=== PATIENT | male | born 1965 | race African-American/Black ===

== ENCOUNTER 2019-07-20 14:58 | Emergency (ER) | payer OTHER, SELFPAY ==
[2019-07-20] MEDS ORDERED: HYDROcodone/Acetaminophen 10/325 mg Tablet ONE (19:11)
== END 2019-07-20 19:18 | disposition home or self-care (01) ==
LOC: ERS 14:58
DX: S16.1XXA Strain of muscle, fascia and tendon at neck level, initial encounter (principal); I10 Essential (primary) hypertension; E11.9 Type 2 diabetes mellitus without complications; F17.210 Nicotine dependence, cigarettes, uncomplicated; Z79.4 Long term (current) use of insulin; Z79.899 Other long term (current) drug therapy; X50.0XXA Overexertion from strenuous movement or load, initial encounter
CPT/HCPCS: 99283

== ENCOUNTER 2019-08-28 19:20 | Inpatient (IN) | payer OTHER ==
[~2019-08-28 19:20] MED LIST: Iopamidol-370 76% 500 ML 1 ML ONE
[2019-08-28] MEDS ORDERED: Dextrose 50% Abboject 50 ML SYRINGE ONE (19:41)
[2019-08-28] MEDS ORDERED: Calcium Chloride 1 GM/10 ML Abboject SYRINGE ONE (19:41)
[2019-08-28] MEDS ORDERED: Albuterol Sulfate 2.5 mg/3 ml Neb ONE (19:45)
[2019-08-28] MEDS ORDERED: Insulin Regular 300 UNITS/3 ML VIAL ONE (19:46)
--- NOTE | 2019-08-28 20:07 | RAD ---
PORTABLE CHEST: 08/28/19 PROVIDED CLINICAL HISTORY: Syncope. FINDINGS: Heart size appears normal. There is a mass-like appearance to the right hilum with adjacent atelectas is or parenchymal mass. The left lung appears grossly clear. There is no pleural fluid or pneumothora x apparent. IMPRESSION: Right hilar mass with associated post obstructive atelectasis or parenchymal mass. Correlation with c hest CT recommended. POS: RYNE
[2019-08-28 20:17] LABS: Band 14 % (5-11); Hemoglobin 13.3 g/dL (14.0-18.0); Lymphocytes 5 % (21-51); MDiff Complete? YES; Mean Corpuscular HGB CONC 31.7 g/dL (32.0-36.0); Mean Corpuscular Hemoglobin 32.4 pg (27.0-31.0); Mean Platelet Volume 10.6 fL (7.4-10.4); Metamyelocyte 1 % (0-0); Monocytes 4 % (0-10); Myelocyte 1 % (0-0); Neutrophil 75 % (42-75); Platelet Count 186 thou/uL (130-400); Platelet Morphology Comment Appears Adequate; RBC Distribution Width 19.3 % (11.5-14.5); White Blood Cell (WBC) Count 38.3 thou/uL (4.8-10.8)
[2019-08-28 20:23] LABS: ALT (SGPT) 647 U/L (8-55); AST (SGOT) 1010 U/L (5-34); Albumin 3.1 g/dL (3.5-5.0); Alkaline Phosphatase 1676 U/L (40-110); Anion Gap 30 mmol/L (10-20); BUN (Urea Nitrogen) 82 mg/dL (8.4-25.7); Bilirubin, Total 24.2 mg/dL (0.2-1.2); Calc. Creatinine Clearance 0 mL/min (70-130); Calcium 9.2 mg/dL (7.8-10.44); Carbon Dioxide 11 mmol/L (22-29); Chloride 98 mmol/L (98-107); Estimated GFR-MDRD 44; Globulin 3.2 g/dL (2.4-3.5); Glucose 118 mg/dL (70-105); Lipase 22 U/L (8-78); Magnesium 3.2 mg/dL (1.6-2.6); Protein, Total 6.3 g/dL (6.0-8.3)
[2019-08-28 20:24] LABS: Base Excess-Venous -11.8 mmol/L (-2.0 to 3.0); Bicarbonate (HCO3v) 12.7 mmol/L (22.0-28.0); CO2 Tension (PvCO2) 25.9 mmHg (40.0-50.0); Calcium, Ionized 0.94 mmol/L (See Comments:); Chloride 106 mmol/L (98-107); Hemoglobin - Calc 16.3 g/dL (14.0-18.0); Potassium 8.7 mmol/L (3.5-5.1); Sodium 131 mmol/L (138-145); T. Carbon Dioxide 13.5 mmol/L (22.0-28.0); vO2 Saturation-calc 97.6 % (60.0-85.0)
[2019-08-28 20:44] LABS: Potassium 8.7 mmol/L (3.5-5.1)
[2019-08-28 20:47] LABS: Sodium 130 mmol/L (136-145)
--- NOTE | 2019-08-28 21:39 | CT ---
CTA Angio Chest W WO Con 08/28/2019 8:54 PM Indication: Cough; weakness and near syncopal episode Technique: Multiple CTA images were obtained of the thorax with IV contrast. 3-D rendering: MIP billy nstructed images were created and reviewed. Comparison: No relevant prior studies available. Findings: Pulmonary arteries: There is a near complete occlusion of the right superior lobar pulmonary artery by the large right suprahilar mass. The mass and lymphadenopathy the right hilar region and envelops right interlobar artery and origins of the right middle and right lower lobar pulmonary neetu caryl. No definite central or segmental pulmonary embolus is demonstrated. Heart and Aorta: Normal appearing. Mediastinum:There is extensive adenopathy of the mediastinum and right hilar region. There is a large right suprahilar mass measuring 8.7 x 9.6 cm. There is extensive adenopathy the right hilar region. Subcarinal lymph node measures 2.6 cm. There is a right paratracheal lymph node measuring 2 c m. There is extensive adenopathy of the anterior and superior mediastinum. There is adenopathy in the prevascular region, AP window. Lungs:There are scattered emphysema. There are scattered pulmonary nodules consistent with metastatic disease. There is hazy groundglass opacity within the superior segment of the left lower lobe. Pleural space: Clear. Upper Abdomen: There are hypodense masses involving the liver consistent with metastatic disease. Osseous Structures: There is an expansile lytic lesion involving the posterior left fifth rib with s oft tissue extension into the left posterior extrapleural space on image 40 series 2. Lesion measures 4.7 cm in size. Soft tissues:No abnormality. Other findings:None. Impression: 1. Large right suprahilar mass with extensive lymphadenopathy in the right hilar region and mediastin um. There is pulmonary, hepatic and osseous metastatic disease present. 2. Hazy groundglass opacity in the superior segment left lower lobe may reflect focal region of pulmo nary hemorrhage versus pneumonitis. 3. No definite central or segmental pulmonary embolus. There is prominent mass effect from the large right suprahilar mass involving the right superior lobar pulmonary artery.
--- NOTE | 2019-08-28 21:45 | CT ---
CT OF THE ABDOMEN AND PELVIS WITH IV CONTRAST INDICATION: History of liver cancer, weakness and near syncopal episode COMPARISON: CT PE examination dated August 28, 2019 FINDINGS: ABDOMEN: Lung bases: There is extensive scattered pulmonary nodules within both lungs Liver: There are numerous hypodense masses involving the liver most suspicious for metastatic disease . Large confluence of heterogeneous masses are seen filling the right hepatic lobe. One of the largest lesion is seen within the medial left measuring 4.9 cm. Gallbladder: Contracted Pancreas: Normal. Adrenal glands: Normal. Spleen: Normal. Kidneys and ureters: Normal. No hydronephrosis. Vasculature: There are mild vascular calcifications seen involving the visualized vasculature. Lymph nodes:There is extensive lymphadenopathy the portacaval region and peripancreatic region. One o f the lymph nodes is seen adjacent to the anterior pancreatic head on image 37 series 5 measuring 3.4 cm. There are mildly enlarged lymph nodes seen adjacent to the aorta on image 42 of series 5. One of the largest measures 1 cm. There are enlarged gastrohepatic lymph nodes. Free fluid in abdomen:No free fluid is evident. PELVIS: Small and large bowel: Normal Appendix:Normal Bladder: Normal. Rectal and perirectal soft tissues:Normal. Reproductive structures: Normal. Free fluid in pelvis: No free fluid is evident. Lymphadenopathy pelvis: No lymphadenopathy is evident. Osseous structures: There is a lytic lesion involving the posterior aspect of L5 with a pathologic en dplate compression fracture. There is approximately 25% loss of height of the central and posterior aspect of L5 vertebral body. There is a left unilateral pars defect at L5. There is scattered degene rative and osteoarthritic changes. Soft tissues:Mild anasarca IMPRESSION: 1. Extensive hepatic metastatic disease. 2. Prominent malignant lymphadenopathy of the upper abdomen 3. Osteolytic metastatic lesion of L5 with pathologic endplate compression abnormalities involving th e central and posterior aspect of the L5 vertebra. 4. Pulmonary metastatic disease. Primary suspected malignancy involving the right suprahilar region, detailed separately on a CT PE examination of the chest dated August 28, 2019.
[2019-08-28] MEDS ORDERED: Cefepime 2 GM VIAL ONE (22:53)
[2019-08-28] MEDS ORDERED: Dextrose 5 %-0.45 % NaCl 1,000 ML IV SCH (23:15)
[2019-08-28] MEDS ORDERED: Insulin Regular 100 units/100 ml in NS IVPB SCH (23:15)
[2019-08-28 23:21] LABS: Anion Gap 27 mmol/L (10-20); BUN (Urea Nitrogen) 82 mg/dL (8.4-25.7); Calc. Creatinine Clearance 0 mL/min (70-130); Calcium 9.2 mg/dL (7.8-10.44); Carbon Dioxide 12 mmol/L (22-29); Chloride 100 mmol/L (98-107); Estimated GFR-MDRD 54; Glucose 156 mg/dL (70-105); Potassium 9.1 mmol/L (3.5-5.1); Sodium 130 mmol/L (136-145)
[2019-08-29 00:28] LABS: Chloride 106 mmol/L (98-107); Sodium 133 mmol/L (136-145)
[2019-08-29 00:29] LABS: BUN (Urea Nitrogen) 85 mg/dL (8.4-25.7); Calc. Creatinine Clearance 0 mL/min (70-130); Calcium 8.9 mg/dL (7.8-10.44); Estimated GFR-MDRD 46; Glucose 165 mg/dL (70-105)
[2019-08-29 00:31] LABS: Carbon Dioxide Less than 8 mmol/L (22-29); Potassium Greater than 9.5 mmol/L (3.5-5.1)
[2019-08-29] MEDS ORDERED: Albuterol Sulfate 2.5 mg/3 ml Neb ONE (00:49)
[2019-08-29 01:11] LABS: Bicarbonate (HCO3v) 12.9 mmol/L (22.0-28.0); CO2 Tension (PvCO2) 29.7 mmHg (40.0-50.0); Calcium, Ionized 1.02 mmol/L (See Comments:); Chloride 96 mmol/L (98-107); Hemoglobin - Calc 13.7 g/dL (14.0-18.0); Potassium 7.1 mmol/L (3.5-5.1); Sodium 123 mmol/L (138-145); T. Carbon Dioxide 13.8 mmol/L (22.0-28.0); vO2 Saturation-calc 86.2 % (60.0-85.0)
[2019-08-29] MEDS ORDERED: Furosemide 100 MG/10 ML VIAL ONE (01:28)
[2019-08-29 03:03] LABS: Troponin I 0.034 ng/mL (< 0.028)
[2019-08-29] MEDS ORDERED: Dextrose 5% in Water 1,000 ML IV PRN (03:13)
[2019-08-29] MEDS ORDERED: Sodium Bicarbonate 100 MEQ in Sodium Chloride 0.45% 1,000 ML IV SCH (03:15)
[2019-08-29] MEDS ORDERED: Sodium Bicarb 50 MEQ/50 ML VIAL ONE ×2 (03:15→03:16)
[2019-08-29] MEDS ORDERED: Dexamethasone 4 mg/ml Vial ONE (03:15)
[2019-08-29] MEDS ORDERED: Bisacodyl 10 MG SUPP PR PRN (03:15)
[2019-08-29] MEDS ORDERED: Senokot S 8.6-50 MG TAB PO PRN (03:15)
[2019-08-29] MEDS ORDERED: Vancomycin 1.5 GRAM/300 ML BAG 1.5 GM in Premix Bag 1 BAG IVPB SCH (03:45)
--- NOTE | 2019-08-29 03:48 | HP ---
PRIMARY CARE PHYSICIAN: [facility], Dr. Brandon Enriquez. CHIEF COMPLAINT: Syncopal episode, generalized weakness with near syncope. HISTORY OF PRESENT ILLNESS: The patient is a 53-year-old male with recent diagnosis of liver cancer with metastasis presented to the emergency room by EMS with above complaint. History obtained from the patient as well as the [facility] records. The patient was admitted to [facility] in [place] from 17 August 2019 until August 24, 2019. He initially presented with nausea, vomiting along with cough. His workup was consistent with lung mass with metastasis to the brain as well as the liver. He underwent CT-guided liver biopsy that was consistent with poorly differentiated carcinoma involving the liver and high grade with Ki67 of 95%. He was also started on dexamethasone for brain metastasis. His MRI of the brain showed 1.5 cm ring-enhancing mass in the right frontal lobe with surrounding vasogenic edema on 18 August. The patient was brought in by EMS with generalized weakness along with near syncopal episode. He was sitting at the table and felt weak, and stated that he was unable to get up. He also reported abdominal discomfort along with lack of appetite and burning in the urination. The abdominal pain is more or less constant without any aggravating or relieving factor. He denies any nausea, vomiting, or diarrhea. No chest pain, palpitations, or focal neurologic deficit reported. In the emergency room, his initial vital signs showed temperature 97.7, respirations of 20, pulse rate of 84 with a blood pressure of 122/60 with O2 saturation 98% on room air. His lab work was consistent with hyperkalemia with potassium of 8.7 along with peaked T-wave changes. His total bilirubin was 24.2 with bicarbonate of less than 8. He is getting a dialysis catheter for emergent dialysis. PAST MEDICAL HISTORY: 1. Poorly differentiated liver malignancy with metastasis. 2. Diabetes mellitus type 2. 3. Tobacco dependence. 4. Hypertension. 5. Hyperlipidemia. PAST SURGICAL HISTORY: Recent liver biopsy. ALLERGIES: THE PATIENT DENIES ANY DRUG ALLERGIES. CURRENT MEDICATIONS: The patient was discharged from [facility] last week with following medications: 1. Dexamethasone 4 mg every 12 hours. 2. Lactulose 20 g twice a day. 3. Zofran as needed. 4. Oxycodone as needed. 5. Sodium bicarbonate 650 mg 3 times a day. 6. Levemir insulin 35 units at night. 7. Cetirizine 10 mg daily. 8. Fluticasone 50 mcg nasal spray daily. 9. NovoLog sliding scale. 10. Patanol 1 drop in each eye twice daily. SOCIAL HISTORY: The patient currently lives at home. He is single. He is a former smoker. Denies any alcohol or drug use. FAMILY HISTORY: Diabetes runs in his family. REVIEW OF SYSTEMS: All other review of systems were reviewed and were found negative. PHYSICAL EXAMINATION: VITAL SIGNS: As discussed above. GENERAL: A 53-year-old male. Ill appearing. Somnolent. HEENT: Head, atraumatic, normocephalic. Sclerae icteric. Dry mucous membranes. No oral lesion. NECK: Supple. No JVD appreciated. No carotid bruit. LUNGS: Show diminished air entry at bilateral bases with scattered rhonchi. HEART: S1, S2 present. Regular rate and rhythm. No rubs or gallops. Abdomen: Obese, soft. Tender in the right lower quadrant with fluid thrill. EXTREMITIES: Two to 3+ edema in bilateral lower extremities. SKIN: Warm and dry. LYMPH NODES: No palpable lymph nodes in the neck. NEUROLOGY: The patient is generally weak without focal deficit. He has chronic facial droop. No other focal deficit. PSYCHIATRY: The patient is awake, alert. Follows commands appropriately. PERIPHERAL VASCULAR: Radial pulses palpable bilaterally. MUSCULOSKELETAL: No joint swelling or tenderness. LABORATORY FINDINGS: 1. CBC showed WBC 38.3 with hemoglobin 13.3, hematocrit 41.8, platelet 186. 2. VBG showed pH of 7.29 with bicarbonate 12.7, pCO2 of 25.9. 3. Chemistry showed sodium 130 with potassium 8.7, bicarbonate less than 8, creatinine 1.95 with BUN of 85. 4. Magnesium 3.2. 5. Alkaline phosphatase 1676, ALT of 647, AST of 1010, total bilirubin 24.2. 6. Troponin of 0.029 with CK-MB of 7.0. 7. Beta hydroxy 0.3. 8. Chest x-ray by my review showed lung mass. 9. CT scan of the abdomen with contrast showed extensive hepatic metastatic disease with lymphadenopathy and osteolytic metastatic lesion of L5 with pathologic endplate compression abnormalities involving the central and the posterior aspect of the L5 vertebra. 10. CT angiogram of the chest was negative for pulmonary embolism. It showed a large right suprahilar mass with extensive lymphadenopathy in the right hilar region and mediastinum. 11. MRI of the brain obtained recently at [facility] showed 1.5 cm ring-enhancing mass in the right frontal lobe with vasogenic edema. 12. Right upper quadrant ultrasound at [facility] on 17 August 2019 showed hepatomegaly with no biliary ductal dilatation. It showed multiple hepatic lesions. 13. EKG by my review showed peaked T-wave changes with sinus rhythm. 14. Bilirubin 5 days ago at [facility] was 20.2 with a potassium of 5.5 at discharge. His creatinine at discharge was 0.8. 15. EKG by my review showed sinus rhythm with peaked T-wave changes. IMPRESSION: 1. Generalized weakness/Toxic Metabolic Encephalopathy, multifactorial. 2. Severe hyperkalemia secondary to metabolic acidosis. 3. Acute kidney injury on chronic kidney disease stage 2. 4. Hyponatremia. 5. Poorly differentiated liver malignancy with metastasis. 6. Brain metastasis with vasogenic edema, on dexamethasone. 7. L5 compression abnormality. 8. Diabetes mellitus type 2. Recent A1c 5.8 9. Hypertension. 10. Hyperlipidemia. 11. Former smoker. 12. Lung mass, probably secondary to metastasis. 13. Recent hospitalization at & as discussed above. PLAN: The patient will be monitored in the intensive care unit. Emergent hemodialysis will be arranged. His WBC at discharge 5 days ago was 22.1. His elevated WBC is probably secondary to dexamethasone use. Nephrology has been consulted. We will start him on sodium bicarbonate drip. We will consult Oncology as well as Neurosurgery. Monitor labs on a daily basis. Insulin sliding scale with glucose check Q4h. Check Ammonia. Palliative care consult. The patient understands the above plan of care. Job ID: [id number] [facility]
[2019-08-29 04:19] LABS: ALT (SGPT) 627 U/L (8-55); AST (SGOT) 951 U/L (5-34); Albumin 2.7 g/dL (3.5-5.0); Alkaline Phosphatase 1486 U/L (40-110); Anion Gap 25 mmol/L (10-20); BUN (Urea Nitrogen) 83 mg/dL (8.4-25.7); Bilirubin, Total 21.3 mg/dL (0.2-1.2); CK (CPK) 616 U/L (30-200); Calc. Creatinine Clearance 59 mL/min (70-130); Calcium 8.5 mg/dL (7.8-10.44); Carbon Dioxide 15 mmol/L (22-29); Chloride 99 mmol/L (98-107); Estimated GFR-MDRD 44; Glucose 192 mg/dL (70-105); Lipase 32 U/L (8-78); Protein, Total 5.7 g/dL (6.0-8.3); Sodium 131 mmol/L (136-145)
[2019-08-29 04:20] LABS: Band 9 % (5-11); Eosinophils 1 % (0-10); Hemoglobin 12.2 g/dL (14.0-18.0); MDiff Complete? YES; Mean Corpuscular HGB CONC 32.8 g/dL (32.0-36.0); Mean Corpuscular Hemoglobin 32.4 pg (27.0-31.0); Mean Corpuscular Volume 98.9 fL (78.0-98.0); Mean Platelet Volume 10.4 fL (7.4-10.4); Metamyelocyte 1 % (0-0); Monocytes 2 % (0-10); Neutrophil 87 % (42-75); Platelet Count 160 thou/uL (130-400); Platelet Morphology Comment Appears Adequate; RBC Distribution Width 18.5 % (11.5-14.5); Red Blood Cell (RBC) Count 3.78 mill/uL (4.70-6.10); Target Cells MODERATE= 6-15 cells (100X) (0-1/hpf); White Blood Cell (WBC) Count 36.8 thou/uL (4.8-10.8)
[2019-08-29] MEDS ORDERED: Insulin Regular 300 UNITS/3 ML VIAL SC PRN (04:35)
[2019-08-29 04:41] LABS: HBSAg Index 0.24 S/CO (0-0.99); Hep B Surf Ag Non-Reactive S/CO (NonReactive)
[2019-08-29 04:44] LABS: CKMB 7.1 ng/mL (0-6.6)
--- NOTE | 2019-08-29 04:58 | CON ---
DATE OF CONSULTATION: 08/29/2019 CONSULTING PHYSICIAN: Dr. Mckenna. REASON FOR CONSULT: Severe hyperkalemia and acidosis. REASON FOR ADMISSION: Syncope. HISTORY OF PRESENT ILLNESS: This is a 53-year-old male with history of liver malignancy with metastasis, type 2 diabetes, tobacco dependence, hypertension, and hyperlipidemia, came to the hospital with syncope and was found to have severe hyperkalemia. Nephrology was consulted. The patient was seen during dialysis and tolerating well. No fever or chills. He has massive leg edema. He is on dexamethasone for brain mets. PAST MEDICAL HISTORY: Positive for liver malignancy, type 2 diabetes, tobacco dependence, hypertension, and hyperlipidemia. PAST SURGICAL HISTORY: Liver biopsy. HOME MEDICATIONS: 1. Dexamethasone. 2. Lactulose. 3. Zofran. 4. Oxycodone. 5. Sodium bicarbonate. 6. Levemir. 7. Cetrizine. 8. Fluticasone. 9. NovoLog. 10. Patanol. ALLERGIES: NO KNOWN DRUG ALLERGIES. SOCIAL HISTORY: No smoking, alcohol, or illicit drug use. FAMILY HISTORY: No history of kidney disease. REVIEW OF SYSTEMS: The following complete review of systems was negative, unless otherwise mentioned in the HPI or below: CONSTITUTIONAL: Weight loss or gain, ability to conduct usual activities. SKIN: Rash, itching. EYES: Double vision, pain. ENT/MOUTH: Nose bleeding, neck stiffness, pain, tenderness. CARDIOVASCULAR: Palpitations, dyspnea on exertion, orthopnea. RESPIRATORY: Shortness of breath, wheezing, cough, hemoptysis, fever or night sweats. GASTROINTESTINAL: Poor appetite, abdominal pain, heartburn, nausea, vomiting, constipation, or diarrhea. GENITOURINARY: Urgency, frequency, dysuria, nocturia. MUSCULOSKELETAL: Pain, swelling. NEUROLOGIC/PSYCHIATRIC: Anxiety, depression. ALLERGY/IMMUNOLOGIC: Skin rash, bleeding tendency. PHYSICAL EXAMINATION: GENERAL: This is a well-built male, in no apparent distress. VITAL SIGNS: Temperature 98.6, pulse 78, respiratory rate 18, and blood pressure 140/76. HEENT: Atraumatic, normocephalic. Oral mucosa moist. NECK: Supple. CV: S1 and S2. Regular rate and rhythm. RESPIRATORY: Clear. GASTROINTESTINAL: Abdomen is soft. MUSCULOSKELETAL: 2+ edema. DERMATOLOGIC: No skin rash. NEUROLOGIC: Alert and awake. LABORATORY DATA: Hemoglobin is 12.2. Potassium is 8.0, sodium is 131, bicarb is 15, BUN is 83, and creatinine is 1.9. ASSESSMENT: 1. Acute kidney injury. Plan is to have dialysis. 2. Severe life-threatening hyperkalemia. Plan is to have emergent dialysis. The patient was seen during dialysis and is tolerating well. We just started him on dialysis. 3. Hyponatremia. 4. Hyperglycemia. 5. Severe acidosis, life threatening. Plan is to have emergent dialysis. 6. Elevated liver enzymes. History of liver cancer. 7. Elevated CK. 8. Hypoalbuminemia. 9. Leukocytosis. 10. History of steroid use. 11. Anemia. 12. History of hypertension. 13. Chronic edema. 14. Poor prognosis. Plan is to have emergent dialysis as tolerated. Monitor glucose and electrolytes closely. We will follow. Thank you for the consult. Avoid nephrotoxics. Job ID: [id number]
[2019-08-29] MEDS: Famotidine 20 MG TAB PO SCH (08:31)
[2019-08-29] MEDS: Dexamethasone 4 MG TAB PO SCH ×2 (08:31→17:02)
--- NOTE | 2019-08-29 09:44 | PDOC.EVN ---
Event Note - Event Note Event Note: Seen and examined. Discussed case at length with patient and daughter over the phone, Kobe Gtz. I updated patient and daughter about poor prognosis of late stage malignancy and unfortunately poor prognosis despite maximum medical therapy. Addressed code status, patient would like to remain full code until he discusses further with his daughter. Time was given for questions, all answered in detail.
--- NOTE | 2019-08-29 10:30 | CON ---
DATE OF CONSULTATION: HISTORY OF PRESENT ILLNESS: Angel Sapp is a 53-year-old unfortunate gentleman, who was released 2 days ago from [facility] with a diagnosis of metastatic carcinoma. We are in the process of trying to get medical records at this minute. He presented to the ER. He has syncope and weakness, right-sided. This patient was drooping. His imaging studies here showed extensive metastatic disease to the liver, the large right upper lung mass with extensive mediastinal adenopathy. He denied any seizure activity. He is in the ICU, multiple doctors have been consulted. The patient tells me that he is a smoker. No alcohol abuse. PAST MEDICAL HISTORY: Pertinent for hypertension and diabetes. PAST SURGICAL HISTORY: None. It is unclear whether any biopsy was done for his extensive metastatic disease at [facility]. SOCIAL HISTORY: Otherwise unremarkable. HOME MEDICATIONS: 1. Metformin 500. 2. Lisinopril 40. 3. He is now started on dexamethasone. ALLERGIES: PENICILLIN. REVIEW OF SYSTEMS: Otherwise 10-point negative. PHYSICAL EXAMINATION: GENERAL: Grossly jaundiced. VITAL SIGNS: Temperature 97, respirations 20, blood pressure , and respiratory rate 18. CHEST: No wheezing or crackles. CARDIAC: Normal S1 and S2. No gallops. ABDOMEN: Distended liver. LABORATORY DATA: White count is 36,000, H and H are 12/37, and platelet count is 160. His pO2 is 59, pCO2 is 29, pH is 7.26. Sodium is 131, creatinine is 1.9, and BUN is 83. Alkaline phosphatase is 1486. Ammonia is elevated at 77. His bilirubin is 21.3. ASSESSMENT: Extensive metastatic carcinoma appears to be primary lung, diabetes, hypertension, hyperlipidemia, jaundice, and right-sided weakness with ptosis. Apparently, information we get is that liver biopsy showed adenocarcinoma. His MRI of the head at [facility] showed a metastatic disease. PLAN: Continue supportive care. Consult local Oncology. I agree with supportive care. Prognosis is grave. He can be transferred to the Oncology floor at any time. Job ID: [id number]
[2019-08-29] MEDS: Insulin Glargine 15 UNITS in Pre-Filled Syringe 1 EACH SC SCH (11:11)
[2019-08-29] MEDS: Insulin Regular 300 UNITS/3 ML VIAL SC PRN ×2 (11:58→16:07)
[2019-08-29] MEDS ORDERED: Heparin 10,000 UNITS/ 10 ML VIAL ONE ×2 (13:00→13:01)
[2019-08-29 13:05] LABS: Anion Gap 20 mmol/L (10-20); BUN (Urea Nitrogen) 56 mg/dL (8.4-25.7); Calc. Creatinine Clearance 71 mL/min (70-130); Carbon Dioxide 22 mmol/L (22-29); Chloride 93 mmol/L (98-107); Estimated GFR-MDRD 55; Glucose 258 mg/dL (70-105); Sodium 128 mmol/L (136-145)
[2019-08-29 13:09] LABS: Potassium 6.6 mmol/L (3.5-5.1)
[2019-08-29] MEDS ORDERED: Docusate 100 MG CAP PO PRN (16:51)
[2019-08-29] MEDS ORDERED: Melatonin 3 MG TAB PO PRN (16:51)
[2019-08-29] MEDS ORDERED: diphenhydrAMINE 25 MG CAP PO PRN (16:51)
[2019-08-29] MEDS ORDERED: Benzonatate 100 MG CAP PO PRN (16:51)
[2019-08-29] MEDS ORDERED: Labetalol HCl 100 MG/20 ML VIAL SLOW IVP PRN (16:51)
[2019-08-29] MEDS: Morphine 4 MG/ML VIAL SLOW IVP PRN ×2 (17:02→20:57)
[2019-08-29] MEDS: oxyCODONE/Acetaminophen 5 mg/325 mg Tablet PO PRN (19:35)
[2019-08-29] MEDS ORDERED: Insulin Glargine 15 UNITS in Pre-Filled Syringe 1 EACH SC SCH (21:00)
[2019-08-29] MEDS ORDERED: FLU VACC QS2019-20(6MOS UP)/PF 60 MCG/0.5 ML SYRINGE IM ONE (21:00)
[2019-08-30] MEDS: Morphine 4 MG/ML VIAL SLOW IVP PRN ×3 (03:51→17:05)
[2019-08-30 05:17] LABS: Hemoglobin 11.7 g/dL (14.0-18.0); Mean Corpuscular HGB CONC 32.9 g/dL (32.0-36.0); Mean Corpuscular Hemoglobin 32.5 pg (27.0-31.0); Mean Corpuscular Volume 98.8 fL (78.0-98.0); Platelet Count 123 thou/uL (130-400); RBC Distribution Width 19.9 % (11.5-14.5); White Blood Cell (WBC) Count 41.5 thou/uL (4.8-10.8)
[2019-08-30 05:25] LABS: ALT (SGPT) 606 U/L (8-55); AST (SGOT) 903 U/L (5-34); Albumin 2.6 g/dL (3.5-5.0); Alkaline Phosphatase 1402 U/L (40-110); Anion Gap 20 mmol/L (10-20); BUN (Urea Nitrogen) 59 mg/dL (8.4-25.7); Bilirubin, Total 20.8 mg/dL (0.2-1.2); Calc. Creatinine Clearance 57 mL/min (70-130); Calcium 8.2 mg/dL (7.8-10.44); Carbon Dioxide 23 mmol/L (22-29); Chloride 93 mmol/L (98-107); Estimated GFR-MDRD 43; Globulin 2.8 g/dL (2.4-3.5); Glucose 253 mg/dL (70-105); Potassium 6.3 mmol/L (3.5-5.1); Protein, Total 5.4 g/dL (6.0-8.3); Sodium 130 mmol/L (136-145)
[2019-08-30 05:33] LABS: Band 3 % (5-11); Hypochromia SLIGHT = 6-15 cells (100X) (0-5/hpf); MDiff Complete? YES; Monocytes 3 % (0-10); Neutrophil 94 % (42-75); Nucleated RBC 1 % (0); Platelet Morphology Comment Appears Decreased
[2019-08-30] MEDS: Insulin Regular 300 UNITS/3 ML VIAL SC PRN ×2 (06:24→12:37)
[2019-08-30] MEDS: Dexamethasone 4 MG TAB PO SCH ×2 (07:43→17:08)
--- NOTE | 2019-08-30 08:53 | PRG ---
DATE OF SERVICE: 08/30/2019 SUBJECTIVE: Angel Sapp this morning is awake, alert, and responsive. No pain. He is eating breakfast, sitting in the chair. OBJECTIVE: VITAL SIGNS: Pulse 94, blood pressure 175/70, saturations are 95% on 2 L, and respiratory rate 22. HEENT: He has right eye ptosis. CHEST: Decreased breath sounds, right greater than left. No wheezing. CARDIAC: Normal S1 and S2. No gallops. ABDOMEN: No masses. LABORATORY DATA: White count 41,000, H and H of 11 and 35, and platelet count 123. Sodium 130, potassium 6.3, creatinine is 2, and BUN 59. LFTs are markedly elevated. Bilirubin is markedly elevated at 20. ASSESSMENT: Metastatic adenocarcinoma, extensive. PLAN: The patient was to be made a DNR, which is being done. He needs probably hospice. Comfort care. They are trying to get information from [facility], where he was hospitalized with a biopsy of his liver. Pulmonary/Critical Care will follow while in the ICU. Job ID: [id number]
[2019-08-30] MEDS: Famotidine 20 MG TAB PO SCH (09:00)
[2019-08-30] MEDS: Insulin Glargine 15 UNITS in Pre-Filled Syringe 1 EACH SC SCH (09:00)
--- NOTE | 2019-08-30 11:14 | PRG ---
DATE OF SERVICE: 08/30/2019 SUBJECTIVE: A 53-year-old gentleman, being seen for acute kidney injury. The patient denies any nausea, vomiting, or chest pain. OBJECTIVE: GENERAL: The patient is awake and alert. VITAL SIGNS: Afebrile, pulse 75, breathing at 16, blood pressure 135/74. HEENT: Head normocephalic and atraumatic. Eyes intact, no ulcers. Nose intact, no ulcers. Ears intact, no ulcers. NECK: Supple. No JVD. CHEST: Symmetrical and clear. CARDIOVASCULAR: Shows S1 and S2, no rub, no murmur. GASTROINTESTINAL: Abdomen is soft, bowel sounds positive. EXTREMITIES: Show no edema or ulcers. SKIN: Shows no rash or petechiae. MUSCULOSKELETAL: Shows no joint swelling or stiffness. GENITOURINARY: Shows no Connell or CVA tenderness. NEUROLOGIC: Motor intact. Cranial nerves intact. LABORATORY DATA: Show hemoglobin 11.7. Creatinine is 2, potassium is 6.3. ASSESSMENT AND PLAN: 1. Acute kidney injury with significant hyperkalemia. We will plan stat dialysis. 2. Hypertension, stable. 3. Anemia, stable. 4. Medications based on GFR, appropriate. 5. Overall prognosis is poor, multiorgan failure. Job ID: [id number]
[2019-08-30] MEDS ORDERED: Heparin 10,000 UNITS/ 10 ML VIAL ONE (13:01)
--- NOTE | 2019-08-30 15:10 | PDOC.HOSPP ---
- Subjective Subjective: Seen and examined. Clinically appears improved. Setting up in the chair. Breathing comfortably on room air. Pain is controlled on current regimen. Patient is understanding more by the day the severity of his illness. Time was given for questions, all answered in detail. - Objective Vital Signs & Weight: Vital Signs (12 hours) Temp Pulse Pulse BP BP Pulse Ox 08/30/19 13:20 92 92 153/68 H 145/76 H 08/30/19 08:00 97.4 F L 94 L 08/30/19 04:00 97.2 F L Weight Admit Weight 206 lb 2.115 oz Weight 206 lb 2.115 oz Most Recent Monitor Data Heart Rate from ECG 87 NIBP 135/74 NIBP BP-Mean 94 Respiration from ECG 8 SpO2 95 I&O: 08/29/19 08/30/19 08/31/19 06:59 06:59 06:59 Intake Total 1880 250 Output Total 350 Balance 1530 250 Result Diagrams: 08/30/19 03:55 08/30/19 03:55 Additional Labs: Accuchecks 08/30/19 08/29/19 08/29/19 12:39 20:58 15:55 POC Glucose 419 H 264 H 242 H Radiology Reviewed by me: Yes Hospitalist ROS - Review of Systems All other systems reviewed; all pertinent +/- noted in HPI/Subj - Medication Medications: Active Medications Generic Name Dose Route Start Last Admin Trade Name Freq PRN Reason Stop Dose Admin Dexamethasone 4 mg 08/29/19 08:00 08/30/19 07:43 Decadron PO 4 mg BID-WM MOE Administration Famotidine 20 mg 08/29/19 09:00 08/30/19 09:00 Pepcid PO 20 mg QAM MOE Administration Insulin Glargine 15 units/ 0.15 mls @ 0 mls/hr 08/29/19 21:00 08/29/19 20:55 Miscellaneous Medication SC 0.15 mls HS MOE Administration Insulin Glargine 15 units/ 0.15 mls @ 0 mls/hr 08/29/19 09:00 08/30/19 09:00 Miscellaneous Medication SC 0.15 mls QAM MOE Administration Insulin Human Regular 0 units 08/29/19 03:13 08/30/19 12:37 Humulin R SC 10 unit .MODERATE SLIDING SC PRN Administration Moderate Correctional Scale Lactulose 20 gm 08/29/19 09:00 08/30/19 09:00 Lactulose PO 20 gm TID MOE Administration Morphine Sulfate 4 mg 08/29/19 16:50 08/30/19 06:20 Morphine SLOW IVP 4 mg Q2H PRN Administration Moderate to Severe Pain (6-10) Oxycodone/Acetaminophen 1 tab 08/29/19 16:50 08/29/19 19:35 Percocet 5/325 PO 1 tab Q4H PRN Administration Moderate Pain (4-5) - Exam General Appearance: NAD Eye: PERRL, anicteric sclera ENT: normocephalic atraumatic, moist mucosa Neck: supple, symmetric, no lymphadenopathy Heart: no murmur, no gallops, no rubs Respiratory: CTAB, no wheezes, no rales, rhonchi (few faint) Gastrointestinal: soft, non-tender, no guarding, no rigidity Gastrointestinal - other findings: Enlaged palpable liver Extremities: 1+ LE edema Skin: no rashes Neurological: no new deficit Musculoskeletal: generalized weakness Psychiatric: A&O x 3, flat affect Hosp A/P (1) Lung cancer Code(s): C34.90 - MALIGNANT NEOPLASM OF UNSP PART OF UNSP BRONCHUS OR LUNG Status: Acute (2) Metastases to the liver Code(s): C78.7 - SECONDARY MALIG NEOPLASM OF LIVER AND INTRAHEPATIC BILE DUCT Status: Acute (3) Metastasis to brain Code(s): C79.31 - SECONDARY MALIGNANT NEOPLASM OF BRAIN Status: Acute (4) HOWARD (acute kidney injury) Code(s): N17.9 - ACUTE KIDNEY FAILURE, UNSPECIFIED Status: Acute (5) Leukocytosis Code(s): D72.829 - ELEVATED WHITE BLOOD CELL COUNT, UNSPECIFIED Status: Acute (6) Hyperkalemia Code(s): E87.5 - HYPERKALEMIA Status: Acute (7) Pain due to malignant neoplasm metastatic to bone Code(s): G89.3 - NEOPLASM RELATED PAIN (ACUTE) (CHRONIC); C79.51 - SECONDARY MALIGNANT NEOPLASM OF BONE Status: Acute (8) DM (diabetes mellitus) Code(s): E11.9 - TYPE 2 DIABETES MELLITUS WITHOUT COMPLICATIONS Status: Acute (9) Tobacco abuse Code(s): Z72.0 - TOBACCO USE Status: Acute - Plan Plan: intensive care unit pulmonology /critical-care consultation, recommendations appreciated palliative care consultation, recommendations appreciated nephrology consultation, recommendations appreciated neurosurgery consultation, recommendations appreciated hemodialysis per nephrology replace electrolytes as needed pain control request records from [facility] with stage IV metastatic disease, believed to be lung primary there is a poor short and long-term prognosis pain control consider less aggressive measures consider hospice blood pressure control blood sugar control G.I. prophylaxis DVT prophylaxis
[2019-08-30] MEDS: Insulin Glargine 20 UNITS in Pre-Filled Syringe SC SCH (21:38)
[2019-08-31 05:02] LABS: Hemoglobin 12.1 g/dL (14.0-18.0); Mean Corpuscular HGB CONC 32.1 g/dL (32.0-36.0); Mean Corpuscular Hemoglobin 32.1 pg (27.0-31.0); Mean Platelet Volume 11.2 fL (7.4-10.4); Platelet Count 109 thou/uL (130-400); RBC Distribution Width 21.6 % (11.5-14.5); Red Blood Cell (RBC) Count 3.76 mill/uL (4.70-6.10); White Blood Cell (WBC) Count 56.1 thou/uL (4.8-10.8)
[2019-08-31 05:19] LABS: ALT (SGPT) 538 U/L (8-55); AST (SGOT) 613 U/L (5-34); Albumin 2.4 g/dL (3.5-5.0); Alkaline Phosphatase 1393 U/L (40-110); Anion Gap 18 mmol/L (10-20); BUN (Urea Nitrogen) 42 mg/dL (8.4-25.7); Bilirubin, Total 23.3 mg/dL (0.2-1.2); Calc. Creatinine Clearance 65 mL/min (70-130); Carbon Dioxide 24 mmol/L (22-29); Chloride 93 mmol/L (98-107); Estimated GFR-MDRD 50; Globulin 2.8 g/dL (2.4-3.5); Glucose 186 mg/dL (70-105); Potassium 5.2 mmol/L (3.5-5.1); Protein, Total 5.2 g/dL (6.0-8.3); Sodium 130 mmol/L (136-145)
[2019-08-31 05:39] LABS: Band 7 % (5-11); Lymphocytes 4 % (21-51); MDiff Complete? YES; Metamyelocyte 1 % (0-0); Monocytes 3 % (0-10); Neutrophil 85 % (42-75); Nucleated RBC 6 % (0); Platelet Morphology Comment Appears Decreased
[2019-08-31] MEDS: Famotidine 20 MG TAB PO SCH (07:52)
[2019-08-31] MEDS: Dexamethasone 4 MG TAB PO SCH (07:52)
[2019-08-31] MEDS: Insulin Glargine 20 UNITS in Pre-Filled Syringe SC SCH (09:12)
--- NOTE | 2019-08-31 09:40 | PRG ---
DATE OF SERVICE: 08/31/2019 SUBJECTIVE: A 53-year-old gentleman being seen for acute kidney injury. The patient denies any nausea, vomiting, or chest pain. OBJECTIVE: GENERAL: The patient is awake and alert. VITAL SIGNS: Afebrile, pulse 75, breathing at 16, and blood pressure 130/70. HEENT: Head normocephalic and atraumatic. Eyes intact, no ulcers. Nose intact, no ulcers. Ears intact, no ulcers. NECK: Supple. No JVD. CHEST: Symmetrical and clear. CARDIOVASCULAR: Shows S1 and S2, no rub, no murmur. GASTROINTESTINAL: Abdomen is soft, bowel sounds positive. EXTREMITIES: Show no edema or ulcers. SKIN: Shows no rash or petechiae. MUSCULOSKELETAL: Shows no joint swelling or stiffness. GENITOURINARY: Shows no Connell or CVA tenderness. NEUROLOGIC: Motor intact. Cranial nerves intact. LABORATORY DATA: Reviewed. ASSESSMENT AND PLAN: 1. Acute kidney injury, stable. 2. Hyperkalemia, improved. We will plan dialysis again. Medications based on GFR are appropriate. The patient probably has hyperkalemia because of tumor lysis syndrome. Job ID: [id number]
--- NOTE | 2019-08-31 09:43 | PRG ---
DATE OF SERVICE: 08/31/2019 SUBJECTIVE: This morning, he is in the ICU, awake, alert, and responsive. OBJECTIVE: VITAL SIGNS: Saturations on room air, temperature 98, pulse 97 respiratory rate 16, blood pressure 120/80. CHEST: No wheezing or crackles. CARDIAC: Normal S1 and S2. No gallops. ABDOMEN: Soft. LABORATORY DATA: White count is 56,000. H and H are 12 and 37. Creatinine is 1.7, BUN is 42, potassium 5.7, sodium is 130, bilirubin is 23. ASSESSMENT AND PLAN: 1. Metastatic adenocarcinoma, extensive. 2. Renal failure. 3. Comfort care. We will transfer him out of the ICU any time. Job ID: [id number]
[2019-08-31] MEDS: Insulin Regular 300 UNITS/3 ML VIAL SC PRN ×2 (11:13→17:55)
[2019-08-31] MEDS ORDERED: Heparin 10,000 UNITS/ 10 ML VIAL ONE (14:23)
--- NOTE | 2019-08-31 17:16 | CON ---
DATE OF CONSULTATION: HISTORY OF PRESENT ILLNESS: The patient is a 53-year-old male with a recent diagnosis of liver cancer with metastasis to the lungs, spine, and brain at his most recent hospitalization at [facility] in [place] last month. The patient was evaluated by Heme-Onc at that time and found to have a right frontal metastasis, which was treated with Decadron and also found to have an L5 compression fracture from bony metastasis at that time as well. He was discharged from the hospital on dexamethasone and plan to follow up with [facility] in [place] on 08/31/2019. However, he returned home and had progressive generalized weakness and decreased appetite, which brought him to the emergency department for additional evaluation. Upon arrival to the emergency department, he was found to have significant electrolyte abnormalities including an elevated potassium of 8.7 with EKG changes. He underwent dialysis catheter placement for emergent dialysis and is also being seen by the Nephrology team here in the unit. I have been asked to evaluate this patient for his brain as well as spinal metastases. I visited the patient at the bedside. He is awake and alert, in no acute distress. He is noted to have a left-sided facial droop, but is otherwise moving all 4s without difficulty. He is complaining of some lower back pain. PAST MEDICAL HISTORY: Liver cancer with metastasis to the brain, lung, and spine; type 2 diabetes; hypertension; and hyperlipidemia. PAST SURGICAL HISTORY: Recent liver biopsy. ALLERGIES: NO KNOWN DRUG ALLERGIES. REVIEW OF SYSTEMS: Per HPI. SOCIAL HISTORY: The patient lives at home with his family. He is a former smoker. He does not currently drink or use any drugs. PHYSICAL EXAMINATION: GENERAL: On exam, the patient is awake and alert, in no acute distress. VITAL SIGNS: Stable. HEENT: Normocephalic and atraumatic, but he is noted to have a left-sided facial droop. ENT; oral mucosa is pink, intact, and moist. He has normal voice. No dysarthria or slurred speech is appreciated. NECK: Nontender to palpation. Free active range of motion. No meningismus or nuchal rigidity. CARDIAC: Regular rate and rhythm. LUNGS: Symmetric chest expansion. No evidence of dyspnea. MUSCULOSKELETAL: No obvious deformities. Symmetric pulses. SKIN: [place], intact, and warm. He is moving all 4s without difficulty. NEUROLOGIC: A and O x4. He has a left-sided facial droop. No focal motor weakness of any extremities. I did not assess his gait. ASSESSMENT AND PLAN: This is a 53-year-old male with recent diagnosis of liver cancer with metastasis to the lung, brain, and spine particularly L5 vertebra with compression fracture. At this point, the patient appears to be neurologically intact. However, I do feel that the L5 compression fracture would benefit from TLSO bracing. I will order a TLSO brace, which the patient should wear for all out-of-bed activities. He can follow up with me in 4 weeks outpatient for reassessment. He can take it off while in bed, lying flat. With regard to the brain metastases, agree with treatment for the vasogenic edema with ongoing dexamethasone. He may benefit from Radiation Oncology. The patient believes that this is arrange when he follows up with [facility].No plans for acute NS intervention at this time. Job ID: [id number] MTDD
[2019-08-31] MEDS ORDERED: Lorazepam 2 MG/ML VIAL SLOW IVP PRN (17:45)
[2019-08-31] MEDS ORDERED: Morphine 2 MG/ML SYRINGE SLOW IVP PRN (17:46)
[2019-08-31] MEDS: oxyCODONE/Acetaminophen 5 mg/325 mg Tablet PO PRN (20:09)
--- NOTE | 2019-08-31 21:41 | PDOC.HOSPP ---
- Subjective Encounter Date: 08/31/19 Encounter Time: 10:00 Subjective: In chair, no new chest pain, shortness of breath, numbness, tingling or weakness. no distress. stable for transfer to floor, appreciate consultants - Objective Vital Signs & Weight: Vital Signs (12 hours) Temp 08/31/19 15:57 98.1 F Weight Admit Weight 206 lb 2.115 oz Weight 206 lb 2.115 oz Most Recent Monitor Data Heart Rate from ECG 89 NIBP 120/66 NIBP BP-Mean 84 Respiration from ECG 15 SpO2 92 I&O: 08/30/19 08/31/19 09/01/19 06:59 06:59 06:59 Intake Total 1880 1330 600 Output Total 350 625 150 Balance 1530 705 450 Result Diagrams: 08/31/19 04:30 08/31/19 04:30 Additional Labs: Accuchecks 08/31/19 08/31/19 08/31/19 15:37 11:14 04:27 POC Glucose 331 H 361 H 184 H 08/30/19 21:45 POC Glucose 153 H Hospitalist ROS - Medication Medications: Active Medications Generic Name Dose Route Start Last Admin Trade Name Freq PRN Reason Stop Dose Admin Dexamethasone 4 mg 08/31/19 09:00 08/31/19 07:52 Decadron PO 4 mg DAILY MOE Administration Famotidine 20 mg 08/29/19 09:00 08/31/19 07:52 Pepcid PO 20 mg QAM MOE Administration Insulin Glargine 20 units/ 0.2 mls @ 0 mls/hr 08/30/19 21:00 08/30/19 21:38 Miscellaneous Medication SC 0.2 mls HS MOE Administration Insulin Glargine 20 units/ 0.2 mls @ 0 mls/hr 08/31/19 09:00 08/31/19 09:12 Miscellaneous Medication SC 0.2 mls QAM MOE Administration Insulin Human Regular 0 units 08/29/19 03:13 08/31/19 17:55 Humulin R SC 8 unit .MODERATE SLIDING SC PRN Administration Moderate Correctional Scale Lactulose 20 gm 08/29/19 09:00 08/31/19 18:04 Lactulose PO 20 gm TID MOE Administration Oxycodone/Acetaminophen 1 tab 08/29/19 16:50 08/31/19 20:09 Percocet 5/325 PO 1 tab Q4H PRN Administration Moderate Pain (4-5) - Exam General Appearance: NAD, awake alert Eye: PERRL, anicteric sclera ENT: normocephalic atraumatic, no oropharyngeal lesions, moist mucosa Neck: supple, symmetric, no JVD, no thyromegaly, no lymphadenopathy, no carotid bruit Heart: RRR, no murmur, no gallops, no rubs, normal peripheral pulses Respiratory: CTAB, no wheezes, no rales, no ronchi, normal chest expansion, no tachypnea, normal percussion Gastrointestinal: soft, non-tender, non-distended, normal bowel sounds, no palpable masses, no hepatomegaly, no splenomegaly, no bruit Extremities: no cyanosis, no clubbing, no edema Skin: normal turgor, no lesions, no rashes Neurological: cranial nerve grossly intact, normal sensation to touch, no weakness, no focal deficits, no new deficit Musculoskeletal: normal tone, normal strength, no muscle wasting Psychiatric: normal affect, normal behavior, A&O x 3 Hosp A/P - Plan intensive care unit -> OK for transfer to floor pulmonology /critical-care consultation, recommendations appreciated palliative care consultation, recommendations appreciated nephrology consultation, recommendations appreciated neurosurgery consultation, recommendations appreciated -> TLSO brace, eventual radiation, no intervention by NSG here hemodialysis per nephrology replace electrolytes as needed pain control request records from [facility] with stage IV metastatic disease, believed to be lung primary there is a poor short and long-term prognosis pain control comfort measures, palliative consult blood pressure control blood sugar control G.I. prophylaxis DVT prophylaxis
[2019-08-31] MEDS: Morphine 4 MG/ML VIAL SLOW IVP PRN (22:55)
[2019-09-01] MEDS: Insulin Glargine 20 UNITS in Pre-Filled Syringe SC SCH ×3 (00:01→20:47)
[2019-09-01 04:53] LABS: Hemoglobin 12.9 g/dL (14.0-18.0); Mean Corpuscular HGB CONC 31.8 g/dL (32.0-36.0); Mean Corpuscular Hemoglobin 32.5 pg (27.0-31.0); Mean Platelet Volume 11.4 fL (7.4-10.4); Platelet Count 96 thou/uL (130-400); RBC Distribution Width 23.9 % (11.5-14.5); Red Blood Cell (RBC) Count 3.97 mill/uL (4.70-6.10); White Blood Cell (WBC) Count 38.8 thou/uL (4.8-10.8)
[2019-09-01 05:11] LABS: Anion Gap 20 mmol/L (10-20); BUN (Urea Nitrogen) 35 mg/dL (8.4-25.7); Calc. Creatinine Clearance 74 mL/min (70-130); Carbon Dioxide 22 mmol/L (22-29); Chloride 94 mmol/L (98-107); Potassium 4.6 mmol/L (3.5-5.1); Sodium 131 mmol/L (136-145)
[2019-09-01 05:12] LABS: ALT (SGPT) 474 U/L (8-55); AST (SGOT) 453 U/L (5-34); Albumin 2.5 g/dL (3.5-5.0); Alkaline Phosphatase 1447 U/L (40-110); Calcium 8.1 mg/dL (7.8-10.44); Estimated GFR-MDRD 58; Globulin 2.9 g/dL (2.4-3.5); Glucose 164 mg/dL (70-105); Protein, Total 5.4 g/dL (6.0-8.3)
[2019-09-01 05:18] LABS: Bilirubin, Total 26.6 mg/dL (0.2-1.2)
[2019-09-01 05:25] LABS: Band 1 % (5-11); Eosinophils 1 % (0-10); Lymphocytes 19 % (21-51); MDiff Complete? YES; Macrocytosis SLIGHT = 6-15 cells (100X) (0-5/hpf); Neutrophil 79 % (42-75); Platelet Morphology Comment Appears Decreased
[2019-09-01] MEDS: Insulin Regular 300 UNITS/3 ML VIAL SC PRN ×3 (06:41→17:15)
[2019-09-01] MEDS: Dexamethasone 4 MG TAB PO SCH (09:09)
[2019-09-01] MEDS: Famotidine 20 MG TAB PO SCH (09:10)
--- NOTE | 2019-09-01 09:46 | PRG ---
DATE OF SERVICE: 09/01/2019 SUBJECTIVE: This morning, he is awake, alert, and responsive. Denies any shortness of breath or pain. OBJECTIVE: VITAL SIGNS: Temperature 97, pulse 95, respiratory rate 18, saturations are 96% on room air, and blood pressure 120/60. CHEST: Decreased breath sounds. CARDIAC: Sinus tach. ABDOMEN: Massive, distended. LABORATORY DATA: White count 38,000. ASSESSMENT: 1. Multiorgan failure secondary to extensive metastatic disease, adenocarcinoma, right lung mass, central nervous system metastases, liver metastases. 2. Renal failure. PLAN: Comfort care. Pulmonary/Critical Care will follow at a distance. He is a DNR. Call if needed. Job ID: [id number]
[2019-09-01] MEDS ORDERED: Artificial Tears 18 DROP/0.9 ML EA EYE PRN (10:25)
--- NOTE | 2019-09-01 14:00 | PRG ---
DATE OF SERVICE: 09/01/2019 SUBJECTIVE: This is a 53-year-old gentleman being seen for acute kidney injury. The patient denied nausea, vomiting, or chest pain. PHYSICAL EXAMINATION: GENERAL: The patient is awake and alert. VITAL SIGNS: Afebrile, pulse 75, breathing at 16, blood pressure 123/60. HEENT: Head normocephalic and atraumatic. Eyes intact, no ulcers. Nose intact, no ulcers. Ears intact, no ulcers. NECK: Supple. No JVD. CHEST: Symmetrical and clear. CARDIOVASCULAR: Shows S1 and S2, no rub, no murmur. GASTROINTESTINAL: Abdomen is soft, bowel sounds positive. EXTREMITIES: Show no edema or ulcers. SKIN: Shows no rash or petechiae. MUSCULOSKELETAL: Shows no joint swelling or stiffness. GENITOURINARY: Shows no Connell or CVA tenderness. NEUROLOGIC: Motor intact. Cranial nerves intact. LABORATORY DATA: Labs show hemoglobin 12.9. Creatinine is 1.5, potassium is 4.6. ASSESSMENT AND PLAN: 1. Acute kidney injury, stable. 2. Hypertension, stable. 3. Hyperkalemia, stable. The patient is on hospice for underlying malignancy for future care plans. Family is undecided about dialysis if indicated. Overall prognosis is poor. He is not a candidate for outpatient dialysis therapy. I have discussed the findings with the primary team as well. Job ID: [id number]
--- NOTE | 2019-09-01 17:22 | PDOC.HOSPP ---
- Subjective Encounter Date: 09/01/19 Encounter Time: 08:30 Subjective: Patient seen and examined for Gen weakness/HOWARD - Tolerating dialysis. No fever/ chills/Cough/CP. No other complaints. No overnight events - Objective Vital Signs & Weight: Vital Signs (12 hours) Temp Pulse Resp BP BP Pulse Ox 09/01/19 16:00 97.4 F L 88 18 131/59 L 94 L 09/01/19 11:20 97.5 F L 93 18 113/58 L 96 09/01/19 08:03 97 09/01/19 08:00 95 09/01/19 07:20 97.5 F L 95 18 123/60 97 Weight Admit Weight 206 lb 2.115 oz Weight 219 lb 2.232 oz Most Recent Monitor Data Heart Rate from ECG 89 NIBP 120/66 NIBP BP-Mean 84 Respiration from ECG 15 SpO2 92 I&O: 08/31/19 09/01/19 09/02/19 06:59 06:59 06:59 Intake Total 1330 600 240 Output Total 625 150 Balance 705 450 240 Result Diagrams: 09/01/19 04:16 09/01/19 04:16 Additional Labs: Accuchecks 09/01/19 09/01/19 09/01/19 16:55 11:23 05:14 POC Glucose 231 H 154 H 179 H 08/31/19 23:27 POC Glucose 165 H Hospitalist ROS - Review of Systems Respiratory: denies: cough, dry, shortness of breath, hemoptysis, SOB with excertion, pleuritic pain, sputum, wheezing, other Cardiovascular: denies: chest pain, palpitations, orthopnea, paroxysmal noc. dyspnea, edema, light headedness, other - Medication Medications: Active Medications Generic Name Dose Route Start Last Admin Trade Name Freq PRN Reason Stop Dose Admin Dexamethasone 4 mg 08/31/19 09:00 09/01/19 09:09 Decadron PO 4 mg DAILY MOE Administration Famotidine 20 mg 08/29/19 09:00 09/01/19 09:10 Pepcid PO 20 mg QAM MOE Administration Insulin Glargine 20 units/ 0.2 mls @ 0 mls/hr 08/30/19 21:00 09/01/19 00:01 Miscellaneous Medication SC 0.2 mls HS MOE Administration Insulin Glargine 20 units/ 0.2 mls @ 0 mls/hr 08/31/19 09:00 09/01/19 09:20 Miscellaneous Medication SC 0.2 mls QAM MOE Administration Insulin Human Regular 0 units 08/29/19 03:13 09/01/19 11:34 Humulin R SC 2 unit .MODERATE SLIDING SC PRN Administration Moderate Correctional Scale Lactulose 20 gm 08/29/19 09:00 09/01/19 15:41 Lactulose PO Not Given TID MOE Morphine Sulfate 4 mg 08/31/19 18:59 08/31/19 22:55 Morphine SLOW IVP 4 mg Q4H PRN Administration pain 7-10 Oxycodone/Acetaminophen 1 tab 08/29/19 16:50 08/31/19 20:09 Percocet 5/325 PO 1 tab Q4H PRN Administration Moderate Pain (4-5) - Exam General Appearance: NAD Heart: RRR, no gallops Respiratory: no wheezes, no ronchi Gastrointestinal: non-tender, non-distended, normal bowel sounds Extremities: no cyanosis, 2+ LE edema Psychiatric: A&O x 3 Hosp A/P - Plan DVT proph w/SCDs 1. Generalized weakness/Toxic Metabolic Encephalopathy, multifactorial. 2. Severe hyperkalemia secondary to metabolic acidosis. 3. Acute kidney injury on chronic kidney disease stage 2. 4. Hyponatremia. 5. Poorly differentiated liver malignancy with metastasis. 6. Brain metastasis with vasogenic edema, on dexamethasone. 7. L5 compression abnormality. 8. Diabetes mellitus type 2. Recent A1c 5.8 9. Hypertension. 10. Hyperlipidemia. 11. Former smoker. 12. Lung mass, probably secondary to metastasis. PLAN: Dialysis per Nephro Await home hospice setup Cont Lantus Cont Dexamethasone TLSO brace
[2019-09-01] MEDS: Morphine 4 MG/ML VIAL SLOW IVP PRN (19:30)
[2019-09-01] MEDS: Artificial Tear Sol 15 ML BOT EA EYE PRN (20:52)
[2019-09-02 07:42] LABS: Anion Gap 18 mmol/L (10-20); BUN (Urea Nitrogen) 57 mg/dL (8.4-25.7); Calc. Creatinine Clearance 45 mL/min (70-130); Calcium 8.1 mg/dL (7.8-10.44); Carbon Dioxide 20 mmol/L (22-29); Chloride 92 mmol/L (98-107); Estimated GFR-MDRD 30; Glucose 113 mg/dL (70-105); Potassium 4.7 mmol/L (3.5-5.1); Sodium 125 mmol/L (136-145)
[2019-09-02 08:05] LABS: Band 5 % (5-11); Hemoglobin 12.8 g/dL (14.0-18.0); Lymphocytes 5 % (21-51); MDiff Complete? YES; Macrocytosis SLIGHT = 6-15 cells (100X) (0-5/hpf); Mean Corpuscular HGB CONC 32.7 g/dL (32.0-36.0); Mean Corpuscular Hemoglobin 33.1 pg (27.0-31.0); Mean Platelet Volume 11.2 fL (7.4-10.4); Metamyelocyte 1 % (0-0); Monocytes 1 % (0-10); Myelocyte 2 % (0-0); Neutrophil 86 % (42-75); Platelet Count 70 thou/uL (130-400); Platelet Morphology Comment Appears Decreased; Polychromasia SLIGHT = 2-3 cells (100X) (0-2/hpf); RBC Distribution Width 24.1 % (11.5-14.5); Red Blood Cell (RBC) Count 3.86 mill/uL (4.70-6.10); Schistocytes SLIGHT = 2-5 cells (100X) (0-1/hpf); Target Cells MARKED = >16 cells (100X) (0-1/hpf); White Blood Cell (WBC) Count 27.9 thou/uL (4.8-10.8)
[2019-09-02] MEDS: Insulin Glargine 20 UNITS in Pre-Filled Syringe SC SCH ×2 (09:22→21:26)
[2019-09-02] MEDS: Dexamethasone 4 MG TAB PO SCH (09:23)
[2019-09-02] MEDS: Famotidine 20 MG TAB PO SCH (09:23)
[2019-09-02] MEDS: oxyCODONE/Acetaminophen 5 mg/325 mg Tablet PO PRN ×2 (14:21→19:32)
[2019-09-02] MEDS: Furosemide 40 MG/4 ML VIAL SLOW IVP PRN (14:22)
--- NOTE | 2019-09-02 22:07 | PDOC.HOSPP ---
- Subjective Encounter Date: 09/02/19 Encounter Time: 12:00 Subjective: Patient seen and examined for gen weakness/HOWARD. No new complaints. No overnight events - Objective Vital Signs & Weight: Vital Signs (12 hours) Temp Pulse Resp BP Pulse Ox 09/02/19 19:49 97.9 F 92 16 131/60 96 09/02/19 12:18 97.8 F 90 18 128/59 L 97 Weight Admit Weight 206 lb 2.115 oz Weight 216 lb 2.24 oz Most Recent Monitor Data Heart Rate from ECG 89 NIBP 120/66 NIBP BP-Mean 84 Respiration from ECG 15 SpO2 92 I&O: 09/01/19 09/02/19 09/03/19 06:59 06:59 06:59 Intake Total 600 720 480 Output Total 150 Balance 450 720 480 Result Diagrams: 09/02/19 07:15 09/02/19 07:15 Additional Labs: Accuchecks 09/02/19 09/02/19 09/02/19 20:00 16:16 12:18 POC Glucose 181 H 108 111 H 09/02/19 06:04 POC Glucose 133 H Hospitalist ROS - Review of Systems Respiratory: denies: cough, dry, shortness of breath, hemoptysis, SOB with excertion, pleuritic pain, sputum, wheezing, other Cardiovascular: denies: chest pain, palpitations, orthopnea, paroxysmal noc. dyspnea, edema, light headedness, other - Medication Medications: Active Medications Generic Name Dose Route Start Last Admin Trade Name Freq PRN Reason Stop Dose Admin Artificial Tears 0 drop 09/01/19 16:28 09/01/19 20:52 Liquitears 15ml Bottle EA EYE 2 drop PRN PRN Administration Dry Eyes Dexamethasone 4 mg 08/31/19 09:00 09/02/19 09:23 Decadron PO 4 mg DAILY MOE Administration Famotidine 20 mg 08/29/19 09:00 09/02/19 09:23 Pepcid PO 20 mg QAM MOE Administration Furosemide 40 mg 09/02/19 10:53 09/02/19 14:22 Lasix SLOW IVP 40 mg DAILY PRN Administration Edema/SOB Insulin Glargine 20 units/ 0.2 mls @ 0 mls/hr 08/30/19 21:00 09/02/19 21:26 Miscellaneous Medication SC 0.2 mls HS MOE Administration Insulin Glargine 20 units/ 0.2 mls @ 0 mls/hr 08/31/19 09:00 09/02/19 09:22 Miscellaneous Medication SC 0.2 mls QAM MOE Administration Insulin Human Regular 0 units 08/29/19 03:13 09/01/19 17:15 Humulin R SC 4 unit .MODERATE SLIDING SC PRN Administration Moderate Correctional Scale Insulin Human Regular 0 units 08/29/19 04:35 09/01/19 20:49 Humulin R SC 3 unit .BEDTIME SLIDING SC PRN Administration Bedtime Correctional Scale Lactulose 20 gm 08/29/19 09:00 09/02/19 20:44 Lactulose PO Not Given TID MOE Morphine Sulfate 4 mg 08/31/19 18:59 09/01/19 19:30 Morphine SLOW IVP 4 mg Q4H PRN Administration pain 7-10 Oxycodone/Acetaminophen 1 tab 08/29/19 16:50 09/02/19 19:32 Percocet 5/325 PO 1 tab Q4H PRN Administration Moderate Pain (4-5) Sodium Chloride 10 ml 08/29/19 03:15 09/02/19 09:24 Flush - Normal Saline IVF 10 ml PRN PRN Administration Saline Flush - Exam General Appearance: NAD Neck: supple, no JVD Heart: no gallops, no rubs Respiratory: no rales, no ronchi Gastrointestinal: non-tender, non-distended Extremities: no cyanosis Hosp A/P - Plan DVT proph w/SCDs 1. Generalized weakness/Toxic Metabolic Encephalopathy 2. Severe hyperkalemia secondary to metabolic acidosis. s/p temporary dialysis 3. Acute kidney injury on chronic kidney disease stage 2. 4. Hyponatremia. 5. Poorly differentiated liver malignancy with metastasis. 6. Brain metastasis with vasogenic edema, on dexamethasone. 7. L5 compression abnormality.TLSO brace 8. Diabetes mellitus type 2. Recent A1c 5.8 9. Hypertension. 10. Hyperlipidemia. 11. Former smoker. 12. Lung mass, probably secondary to metastasis. PLAN: Femoral dialysis catheter dced No need for further Dialysis per Nephro Cont Lantus and other meds as above Await hospice eval
[2019-09-03] MEDS: Insulin Glargine 15 UNITS in Pre-Filled Syringe 1 EACH SC SCH ×3 (09:42→21:49)
[2019-09-03] MEDS: Dexamethasone 4 MG TAB PO SCH (09:43)
[2019-09-03] MEDS: Famotidine 20 MG TAB PO SCH (09:53)
--- NOTE | 2019-09-03 17:12 | PDOC.HOSPP ---
- Subjective Encounter Date: 09/03/19 Encounter Time: 08:30 Subjective: Patient seen and examined for Liver CA with gen weakness. No new complaints. No overnight events - Objective Vital Signs & Weight: Vital Signs (12 hours) Temp Pulse Resp BP Pulse Ox 09/03/19 08:10 97.9 F 82 18 112/59 L 96 Weight Admit Weight 206 lb 2.115 oz Weight 216 lb 2.24 oz Most Recent Monitor Data Heart Rate from ECG 89 NIBP 120/66 NIBP BP-Mean 84 Respiration from ECG 15 SpO2 92 I&O: 09/02/19 09/03/19 09/04/19 06:59 06:59 06:59 Intake Total 720 720 Balance 720 720 Result Diagrams: 09/02/19 07:15 09/02/19 07:15 Additional Labs: Accuchecks 09/03/19 09/03/19 09/03/19 16:36 11:07 05:51 POC Glucose 115 H 85 93 09/02/19 09/02/19 20:00 16:16 POC Glucose 181 H 108 Hospitalist ROS - Review of Systems Respiratory: denies: cough, dry, shortness of breath, hemoptysis, SOB with excertion, pleuritic pain, sputum, wheezing, other Cardiovascular: denies: chest pain, palpitations, orthopnea, paroxysmal noc. dyspnea, edema, light headedness, other - Medication Medications: Active Medications Generic Name Dose Route Start Last Admin Trade Name Freq PRN Reason Stop Dose Admin Artificial Tears 0 drop 09/01/19 16:28 09/01/19 20:52 Liquitears 15ml Bottle EA EYE 2 drop PRN PRN Administration Dry Eyes Dexamethasone 4 mg 08/31/19 09:00 09/03/19 09:43 Decadron PO 4 mg DAILY MOE Administration Famotidine 20 mg 08/29/19 09:00 09/03/19 09:53 Pepcid PO Not Given QAM MOE Furosemide 40 mg 09/02/19 10:53 09/02/19 14:22 Lasix SLOW IVP 40 mg DAILY PRN Administration Edema/SOB Insulin Glargine 15 units/ 0.15 mls @ 0 mls/hr 09/03/19 09:00 09/03/19 09:42 Miscellaneous Medication SC 0.15 mls BID MOE Administration Insulin Human Regular 0 units 08/29/19 03:13 09/01/19 17:15 Humulin R SC 4 unit .MODERATE SLIDING SC PRN Administration Moderate Correctional Scale Insulin Human Regular 0 units 08/29/19 04:35 09/01/19 20:49 Humulin R SC 3 unit .BEDTIME SLIDING SC PRN Administration Bedtime Correctional Scale Lactulose 20 gm 08/29/19 09:00 09/03/19 16:51 Lactulose PO Not Given TID [facility] Morphine Sulfate 4 mg 08/31/19 18:59 09/01/19 19:30 Morphine SLOW IVP 4 mg Q4H PRN Administration pain 7-10 Oxycodone/Acetaminophen 1 tab 08/29/19 16:50 09/02/19 19:32 Percocet 5/325 PO 1 tab Q4H PRN Administration Moderate Pain (4-5) Sodium Chloride 10 ml 08/29/19 03:15 09/02/19 09:24 Flush - Normal Saline IVF 10 ml PRN PRN Administration Saline Flush - Exam General Appearance: NAD Heart: RRR, no gallops Respiratory: no wheezes, no rales, no ronchi Gastrointestinal: non-tender, non-distended Extremities: no cyanosis Neurological: no new deficit Hosp A/P - Plan DVT proph w/SCDs 1. Generalized weakness/Toxic Metabolic Encephalopathy 2. Severe hyperkalemia secondary to metabolic acidosis. s/p temporary dialysis 3. Acute kidney injury on chronic kidney disease stage 2. 4. Hyponatremia. 5. Poorly differentiated liver malignancy with metastasis. 6. Brain metastasis with vasogenic edema, on dexamethasone. 7. L5 compression abnormality.TLSO brace 8. Diabetes mellitus type 2. Recent A1c 5.8 9. Hypertension. 10. Hyperlipidemia. 11. Former smoker. 12. Lung mass, probably secondary to metastasis. PLAN: Reduce Lantus to 15 BID Cont sliding scale Cont other meds as above Await hospice eval and placement - stable for dc
[2019-09-03] MEDS: oxyCODONE/Acetaminophen 5 mg/325 mg Tablet PO PRN (21:32)
[2019-09-04] MEDS: oxyCODONE/Acetaminophen 5 mg/325 mg Tablet PO PRN ×2 (04:56→16:04)
[2019-09-04] MEDS: Insulin Glargine 10 UNITS in Pre-Filled Syringe 1 EACH SC SCH ×2 (09:00→21:07)
[2019-09-04] MEDS: Dexamethasone 4 MG TAB PO SCH (09:01)
[2019-09-04] MEDS: Famotidine 20 MG TAB PO SCH (09:01)
--- NOTE | 2019-09-04 11:18 | PDOC.HOSPP ---
- Subjective Encounter Date: 09/04/19 Encounter Time: 08:00 Subjective: Patient seen and examined for Liver CA. Poor appetite. No new complaints. No overnight events - Objective Vital Signs & Weight: Vital Signs (12 hours) Temp Pulse Resp BP Pulse Ox 09/04/19 07:42 97.4 F L 81 16 126/60 96 Weight Admit Weight 206 lb 2.115 oz Weight 216 lb 2.24 oz Most Recent Monitor Data Heart Rate from ECG 89 NIBP 120/66 NIBP BP-Mean 84 Respiration from ECG 15 SpO2 92 I&O: 09/03/19 09/04/19 09/05/19 06:59 06:59 06:59 Intake Total 720 900 Balance 720 900 Result Diagrams: 09/02/19 07:15 09/02/19 07:15 Additional Labs: Accuchecks 09/04/19 09/04/19 09/04/19 07:37 06:00 05:15 POC Glucose 102 73 60 L 09/03/19 09/03/19 20:39 16:36 POC Glucose 127 H 115 H Hospitalist ROS - Review of Systems Respiratory: denies: cough, dry, shortness of breath, hemoptysis, SOB with excertion, pleuritic pain, sputum, wheezing, other Cardiovascular: denies: chest pain, palpitations, orthopnea, paroxysmal noc. dyspnea, edema, light headedness, other - Medication Medications: Active Medications Generic Name Dose Route Start Last Admin Trade Name Freq PRN Reason Stop Dose Admin Artificial Tears 0 drop 09/01/19 16:28 09/01/19 20:52 Liquitears 15ml Bottle EA EYE 2 drop PRN PRN Administration Dry Eyes Dexamethasone 4 mg 08/31/19 09:00 09/04/19 09:01 Decadron PO 4 mg DAILY MOE Administration Famotidine 20 mg 08/29/19 09:00 09/04/19 09:01 Pepcid PO 20 mg QAM MOE Administration Furosemide 40 mg 09/02/19 10:53 09/02/19 14:22 Lasix SLOW IVP 40 mg DAILY PRN Administration Edema/SOB Insulin Glargine 10 units/ 0.1 mls @ 0 mls/hr 09/04/19 09:00 09/04/19 09:00 Miscellaneous Medication SC 0.1 mls BID MOE Administration Insulin Human Regular 0 units 08/29/19:13 09/01/19 17:15 Humulin R SC 4 unit .MODERATE SLIDING SC PRN Administration Moderate Correctional Scale Insulin Human Regular 0 units 08/29/19 04:35 09/01/19 20:49 Humulin R SC 3 unit .BEDTIME SLIDING SC PRN Administration Bedtime Correctional Scale Lactulose 20 gm 08/29/19 09:00 09/04/19 09:13 Lactulose PO Not Given TID [facility] Morphine Sulfate 4 mg 08/31/19 18:59 09/01/19 19:30 Morphine SLOW IVP 4 mg Q4H PRN Administration pain 7-10 Oxycodone/Acetaminophen 1 tab 08/29/19 16:50 09/04/19 04:56 Percocet 5/325 PO 1 tab Q4H PRN Administration Moderate Pain (4-5) Sodium Chloride 10 ml 08/29/19 03:15 09/02/19 09:24 Flush - Normal Saline IVF 10 ml PRN PRN Administration Saline Flush - Exam General Appearance: NAD Heart: RRR, no gallops Respiratory: no wheezes, no ronchi Gastrointestinal: non-tender, normal bowel sounds Extremities: no cyanosis Neurological: no new deficit Hosp A/P - Plan DVT proph w/SCDs 1. Generalized weakness/Toxic Metabolic Encephalopathy 2. Severe hyperkalemia secondary to metabolic acidosis. s/p temporary dialysis 3. Acute kidney injury on chronic kidney disease stage 2. 4. Hyponatremia. 5. Poorly differentiated liver malignancy with metastasis. 6. Brain metastasis with vasogenic edema, on dexamethasone. 7. L5 compression abnormality.TLSO brace 8. Diabetes mellitus type 2. Recent A1c 5.8 9. Hypertension. 10. Hyperlipidemia. 11. Former smoker. 12. Lung mass, probably secondary to metastasis. PLAN: Reduce Lantus to 10 BID Advance diet to ground - Patient understands the risk Await hospice eval and placement - stable for discharge Cont other meds as above
--- NOTE | 2019-09-04 14:10 | EKG ---
Test Reason : EMERGENCY EXAM Blood Pressure : / mmHG Vent. Rate : 072 BPM Atrial Rate : 072 BPM P-R Int : 184 ms QRS Dur : 154 ms QT Int : 448 ms P-R-T Axes : 057 -57 043 degrees QTc Int : 490 ms Normal sinus rhythm Possible Left atrial enlargement Left axis deviation Left bundle branch block Abnormal ECG Peaked T waves V2-V5 Confirmed by OFELIA HAYES DO ([id number]), editor managing newspaper TAVIA MANN ([id number]) on 09/04/2019 2:10:05 PM Referred By: Confirmed By:OFELIA HAYES DO
--- NOTE | 2019-09-04 14:11 | EKG ---
Test Reason : Blood Pressure : / mmHG Vent. Rate : 084 BPM Atrial Rate : 084 BPM P-R Int : 158 ms QRS Dur : 126 ms QT Int : 414 ms P-R-T Axes : 054 -49 038 degrees QTc Int : 489 ms Normal sinus rhythm Left axis deviation Non-specific intra-ventricular conduction block Abnormal ECG Peaked T waves V2-V5 Confirmed by OFELIA HAYES DO ([id number]), news assignment editor TAVIA MANN ([id number]) on 09/04/2019 2:10:31 PM Referred By: Confirmed By:OFELIA HAYES DO
[2019-09-04] MEDS: Morphine 4 MG/ML VIAL SLOW IVP PRN (15:53)
[2019-09-04] MEDS: Artificial Tear Sol 15 ML BOT EA EYE PRN (21:07)
[2019-09-05] MEDS: oxyCODONE/Acetaminophen 5 mg/325 mg Tablet PO PRN ×3 (04:48→20:21)
[2019-09-05] MEDS: Insulin Glargine 10 UNITS in Pre-Filled Syringe 1 EACH SC SCH (09:25)
[2019-09-05] MEDS: Dexamethasone 4 MG TAB PO SCH (09:25)
[2019-09-05] MEDS: Famotidine 20 MG TAB PO SCH (09:25)
[2019-09-05] MEDS: Furosemide 40 MG/4 ML VIAL SLOW IVP PRN (10:27)
[2019-09-05] MEDS: Artificial Tear Sol 15 ML BOT EA EYE PRN (10:27)
[2019-09-05 14:33] VITALS: BMI 31.4
--- NOTE | 2019-09-05 17:01 | PDOC.HOSPP ---
- Subjective Encounter Date: 09/05/19 Encounter Time: 16:00 Subjective: Patient seen and examined for Liver CA. No new complaints. No overnight events - Objective Vital Signs & Weight: Vital Signs (12 hours) Temp Pulse Resp BP BP Pulse Ox 09/05/19 16:00 97.6 F 87 16 117/59 L 96 09/05/19 08:00 97 09/05/19 07:12 97.5 F L 80 16 110/53 L 97 Weight Admit Weight 206 lb 2.115 oz Weight 206 lb 9.17 oz Most Recent Monitor Data Heart Rate from ECG 89 NIBP 120/66 NIBP BP-Mean 84 Respiration from ECG 15 SpO2 92 I&O: 09/04/19 09/05/19 09/06/19 06:59 06:59 06:59 Intake Total 900 200 Balance 900 200 Result Diagrams: 09/02/19 07:15 09/02/19 07:15 Additional Labs: Accuchecks 09/05/19 09/05/19 09/05/19 16:37 14:40 07:53 POC Glucose 85 75 101 09/05/19 09/05/19 09/04/19 06:37 05:55 20:27 POC Glucose 64 L 58 L* 144 H Hospitalist ROS - Review of Systems Cardiovascular: denies: chest pain, palpitations, orthopnea, paroxysmal noc. dyspnea, edema, light headedness, other Gastrointestinal: denies: nausea, vomiting, abdominal pain, diarrhea, constipation, melena, hematochezia, other - Medication Medications: Active Medications Generic Name Dose Route Start Last Admin Trade Name Freq PRN Reason Stop Dose Admin Artificial Tears 0 drop 09/01/19 16:28 09/05/19 10:27 Liquitears 15ml Bottle EA EYE 1 drop PRN PRN Administration Dry Eyes Dexamethasone 4 mg 08/31/19 09:00 09/05/19 09:25 Decadron PO 4 mg DAILY MOE Administration Famotidine 20 mg 08/29/19 09:00 09/05/19 09:25 Pepcid PO 20 mg QAM MOE Administration Furosemide 40 mg 09/02/19 10:53 09/02/19 14:22 Lasix SLOW IVP 40 mg DAILY PRN Administration Edema/SOB Insulin Human Regular 0 units 08/29/19 03:13 09/01/19 17:15 Humulin R SC 4 unit .MODERATE SLIDING SC PRN Administration Moderate Correctional Scale Insulin Human Regular 0 units 08/29/19 04:35 09/01/19 20:49 Humulin R SC 3 unit .BEDTIME SLIDING SC PRN Administration Bedtime Correctional Scale Lactulose 20 gm 08/29/19 09:00 09/05/19 15:43 Lactulose PO Not Given TID MOE Morphine Sulfate 4 mg 08/31/19 18:59 09/01/19 19:30 Morphine SLOW IVP 4 mg Q4H PRN Administration pain 7-10 Oxycodone/Acetaminophen 1 tab 08/29/19 16:50 09/05/19 10:34 Percocet 5/325 PO 1 tab Q4H PRN Administration Moderate Pain (4-5) Sodium Chloride 10 ml 08/29/19 03:15 09/02/19 09:24 Flush - Normal Saline IVF 10 ml PRN PRN Administration Saline Flush - Exam General Appearance: NAD Neck: supple, no JVD Heart: RRR, no gallops Respiratory: no wheezes, no rales Gastrointestinal: soft, non-tender, normal bowel sounds Hosp A/P - Plan DVT proph w/SCDs 1. Generalized weakness/Toxic Metabolic Encephalopathy 2. Severe hyperkalemia secondary to metabolic acidosis. s/p temporary dialysis 3. Acute kidney injury on chronic kidney disease stage 2. 4. Hyponatremia. 5. Poorly differentiated liver malignancy with metastasis. 6. Brain metastasis with vasogenic edema, on dexamethasone. 7. L5 compression abnormality.TLSO brace 8. Diabetes mellitus type 2. Recent A1c 5.8 9. Hypertension. 10. Hyperlipidemia. 11. Former smoker. 12. Lung mass, probably secondary to metastasis. 13. Swallow dysfunction - on modified diet PLAN: DC Lantus due to hypoglycemia Cont other meds Await hospice eval and placement - stable for discharge
[2019-09-06] MEDS: oxyCODONE/Acetaminophen 5 mg/325 mg Tablet PO PRN (00:37)
[2019-09-06] MEDS: Dextrose 50% Abboject 50 ML SYRINGE SLOW IVP PRN ×2 (03:30→06:10)
[2019-09-06] MEDS: Morphine 4 MG/ML VIAL SLOW IVP PRN ×3 (03:31→19:13)
[2019-09-06] MEDS ORDERED: Dextrose 5 %-0.45 % NaCl 1,000 ML IV SCH (06:30)
[2019-09-06] MEDS ORDERED: Dexamethasone 4 mg/ml Vial SLOW IVP SCH (06:30)
[2019-09-06] MEDS ORDERED: Dexamethasone 20 MG/5 ML VIAL SLOW IVP SCH (06:30)
[2019-09-06] MEDS ORDERED: Furosemide 40 MG TAB PO SCH (09:00)
[2019-09-06] MEDS: Famotidine 20 MG TAB PO SCH (10:36)
[2019-09-06] MEDS: Dexamethasone 4 MG TAB PO SCH (10:37)
[2019-09-06 19:40] VITALS: BP 102/49; TEMP 97.3
--- NOTE | 2019-09-07 07:54 | DIS ---
DATE OF ADMISSION: 08/29/2019 DATE OF DISCHARGE: 09/06/2019 DISCHARGE DISPOSITION: Inpatient Hospice. FOLLOWUP: Follow up with primary care physician as scheduled. The patient follows [facility]. CODE STATUS: Do not resuscitate. The patient was seen and examined on the day of discharge. Denies any new complaints. No chest pain, shortness of breath, or palpitations reported. DISCHARGE MEDICATIONS: 1. Dexamethasone 4 mg daily. 2. Pepcid 20 mg daily. 3. DuoNeb as needed. 4. Lactulose 20 g three times daily. BRIEF HOSPITAL COURSE: The patient is a 53-year-old male, who was recently diagnosed with liver cancer with metastasis at [facility], presented to the hospital by EMS with generalized weakness and near syncope. Please refer to the history and physical dated August 29, 2019, for further details. Please note that he had a CT-guided liver biopsy at [facility] that showed poorly differentiated carcinoma involving the liver. He was also found to have brain metastasis and was started on dexamethasone. The patient was admitted to the intermediate care unit with a diagnosis of generalized weakness with toxic-metabolic encephalopathy and severe hyperkalemia. His potassium on admission was 8.7 with bicarbonate of less than 8. He was started on emergent hemodialysis after a femoral dialysis catheter placement. Later on, the dialysis catheter was discontinued. His potassium stabilized after dialysis. The patient was also found to have L5 compression fracture, for which a TLSO brace was arranged per Neurosurgery recommendation. The patient was evaluated by Oncology Service, who recommended palliative care/hospice. The patient has been accepted by [facility] due to overall decline. FINAL DIAGNOSES: 1. Generalized weakness with toxic-metabolic encephalopathy. 2. Severe hyperkalemia secondary to metabolic acidosis, status post hemodialysis this admission. 3. Acute kidney injury on chronic kidney disease, stage 2. 4. Hyponatremia. 5. Poorly differentiated liver malignancy with metastasis. 6. Brain metastasis with vasogenic edema, on dexamethasone. 7. L5 compression abnormality. TLSO brace was arranged. 8. Diabetes mellitus, type 2 with episodes of hypoglycemia due to poor appetite. 9. Hypertension. 10. Hyperlipidemia. 11. Former smoker. 12. Lung mass, probably secondary to metastasis. 13. Swallow dysfunction, on modified diet. 14. Recent hospitalization at [facility] as discussed above. TIME SPENT: Time coordinating the discharge of this patient was 36 minutes. ALLERGIES: THE PATIENT IS ALLERGIC TO PENICILLIN. Job ID: [id number]
--- NOTE | 2019-09-08 23:01 | PQF ---
SUSANA OLIVO MALIK MD [id number] CLINICAL DOCUMENTATION CLARIFICATION FORM: POST DISCHARGE Addendum to original discharge summary date: ____ Late entry note date: __ DATE:09/08/2019 ATTN:KRAIG MCKENNA MD Please exercise your independent, professional judgment in responding to the clarification form. Clinical indicators are provided on the bottom of this form for your review Please check appropriate box(s) to clarify if the following diagnosis has been ruled in or ruled out: Diabetic ketoacidosis [ ] Ruled in diagnosis [ ] Continue to treat [ ] Resolved [ x] Ruled out diagnosis [ ] Cannot rule out diagnosis [ ] Other diagnosis [ ] Unable to determine For continuity of documentation, please document condition throughout progress notes and discharge summary. Thank You. CLINICAL INDICATORS - SIGNS / SYMPTOMS / LABS Diabetic ketoacidosis -Documented in ED on 08/28 by Jens Pollock DO Pt has anion gap of 30-Documented in ED on 08/28 by Jens Pollock DO [id number] in ED on 08/28 by Jens Pollock DO Diabetes mellitus type 2 recent A1c 5.8-Documented in H&P on 08/28 by Kraig Mckenna MD [employer] [id number] in ED on 08/28 by Jens Pollock DO Diabetes mellitus type 2 recent A1c 5.8-Documented in H&P on 08/28 by Kraig Mckenna MD TREATMENTS Will start D5 and insulin drip to try to close the gap-Documented in ED on by Jens Pollock DO Insulin sliding scale with glucose check [id number] in H&P on 08/28 by Kraig Mckenna MD [employer] In[employer] Winform Viewer (This form is maintained as a part of the permanent medical record) 2014 [employer]. All Rights Reserved [email or web address]
== END 2019-09-06 20:08 | disposition hospice, inpatient (51) | DRG 91 ==
LOC: ERS 19:20 → CCU 08-29 03:56 → ONC 08-31 19:58
PROVIDERS: ADMIT Internal Medicine; ATTEND Internal Medicine
PROC: 5A1D70Z Performance of Urinary Filtration, Intermittent, Less than 6 Hours Per Day (ICD-10-PCS; principal; 2019-08-29)
PROC: 06HY33Z Insertion of Infusion Device into Lower Vein, Percutaneous Approach (ICD-10-PCS; 2019-08-29)
DX: G92 Toxic encephalopathy (principal); G93.6 Cerebral edema; E88.3 Tumor lysis syndrome; E87.2 Acidosis; N17.9 Acute kidney failure, unspecified; E87.1 Hypo-osmolality and hyponatremia; M48.56XA Collapsed vertebra, not elsewhere classified, lumbar region, initial encounter for fracture; C79.31 Secondary malignant neoplasm of brain; C34.90 Malignant neoplasm of unspecified part of unspecified bronchus or lung; C78.7 Secondary malignant neoplasm of liver and intrahepatic bile duct; E87.5 Hyperkalemia; Z51.5 Encounter for palliative care; Z66 Do not resuscitate; I12.9 Hypertensive chronic kidney disease with stage 1 through stage 4 chronic kidney disease, or unspecified chronic kidney disease; E11.22 Type 2 diabetes mellitus with diabetic chronic kidney disease; N18.2 Chronic kidney disease, stage 2 (mild); E11.649 Type 2 diabetes mellitus with hypoglycemia without coma; E78.5 Hyperlipidemia, unspecified; Z87.891 Personal history of nicotine dependence; R13.10 Dysphagia, unspecified; Z88.0 Allergy status to penicillin; Z83.3 Family history of diabetes mellitus; R40.2362 Coma scale, best motor response, obeys commands, at arrival to emergency department; R40.2142 Coma scale, eyes open, spontaneous, at arrival to emergency department; R40.2252 Coma scale, best verbal response, oriented, at arrival to emergency department; E88.09 Other disorders of plasma-protein metabolism, not elsewhere classified; G89.3 Neoplasm related pain (acute) (chronic)
CPT/HCPCS: 36415; 36416; 36556; 71045; 71275; 74177; 80048; 80053; 82010; 82140; 82330; 82435; 82550; 82553; 82803; 83690; 83735; 84132; 84295; 84484; 85014; 85025; 87340; 90935; 93005; 94640; 96361; 96365; 96366; 96367; 96375; C1752; G0257; J0692; J1100; J1644; J1815; J1940; J1956; J2270; J3490; J7611; J8540; Q9967